=== PATIENT | female | born 1940 | race Caucasian/White ===

== ENCOUNTER → 2018-09-25 | Outpatient (CLI) | payer MEDICARE ==
[~2018-09-25] MED LIST: TIOT18 IH
== END | disposition home or self-care (01) ==
LOC: PLD 07:42 → LAB SHORT 07:42
DX: C44.722 Squamous cell carcinoma of skin of right lower limb, including hip (principal)
CPT/HCPCS: 88305

== ENCOUNTER → 2019-05-15 | Outpatient (CLI) | payer MEDICARE | END | disposition home or self-care (01) | LOC: LAB SHORT 08:58 → PLD 08:58 | DX: L82.1 Other seborrheic keratosis (principal) | CPT/HCPCS: 88305 ==

== ENCOUNTER → 2020-07-17 | Outpatient (CLI) | payer MEDICARE ==
[~2020-07-17] MED LIST changes: +ESTRADIOL42.5 GM; +LOW DOSE ASPIRI81 M1 PO; +PLAVIX75 MG PO; +TRELEGY ELLIPT1 EAC1 INH
[2020-07-18 14:11] LABS: Stool Occult Bld Immuno 1 Negative (NEGATIVE)
== END | disposition home or self-care (01) ==
LOC: LAB 10:00 → LAB SHORT 10:00
PROVIDERS: Family Medicine
DX: Z12.11 Encounter for screening for malignant neoplasm of colon (principal)
CPT/HCPCS: G0328

== ENCOUNTER 2020-11-21 16:31 | Emergency (ER) | payer MEDICARE ==
[~2020-11-21] VITALS: Ht 165.1 cm; Wt 59.0 kg
[~2020-11-21 16:31] MED LIST changes: -ESTRADIOL42.5 GM; -LOW DOSE ASPIRI81 M1 PO; -PLAVIX75 MG PO; -TRELEGY ELLIPT1 EAC1 INH
[2020-11-21] MEDS ORDERED: LOW DOSE ASPIRI81 M1 PO (16:52)
[2020-11-21] MEDS ORDERED: TRELEGY ELLIPT1 EAC1 INH (16:56)
[2020-11-21 16:58] LABS: BASOPHILS ABSOLUTE AUTO 0.05 K/mm3 (0.00-0.23); BASOPHILS PERCENT AUTO 1 % (0-2); EOSINOPHILS ABSOLUTE AUTO 0.21 K/mm3 (0.00-0.68); EOSINOPHILS PERCENT AUTO 4 % (0-6); Hematocrit 40.1 % (33.0-51.0); IMMATURE GRAN ABSOLUTE AUTO 0.02 K/mm3 (0.00-0.10); IMMATURE GRAN PERCENT AUTO 0 % (0-1); LYMPHOCYTES ABSOLUTE AUTO 1.38 K/mm3 (0.84-5.20); LYMPHOCYTES PERCENT AUTO 26 % (21-46); MONOCYTES ABSOLUTE AUTO 0.49 K/mm3 (0.16-1.47); MONOCYTES PERCENT AUTO 9 % (4-13); Mean Corpuscular HGB 28.6 pg (26.0-34.0); Mean Corpuscular HGB Conc 32.4 g/dL (31.5-36.5); Mean Corpuscular Volume 88 fL (80-100); NEUTROPHILS ABSOLUTE AUTO 3.11 K/mm3 (1.96-9.15); NEUTROPHILS PERCENT AUTO 59 % (41-73); Platelet Count 182 K/mm3 (150-400); RDW Coefficient Variation 12.1 % (11.7-14.2); RDW Standard Deviation 39.1 fL (35.1-46.3); Red Blood Cell Count 4.55 M/mm3 (3.80-5.20); White Blood Cell Count 5.26 K/mm3 (4.00-11.30)
[2020-11-21 17:47] LABS: Alanine Aminotransfer (ALT/SGP 37 U/L (12-78); Albumin, Blood 3.7 g/dL (3.4-5.0); Albumin/Globulin Ratio 1.3 (0.8-1.8); Alk Phos 89 U/L (50-136); Anion Gap 2 mmol/L (6-16); Aspartate Aminotrans (AST/SGOT 58 U/L (12-37); Bilirubin, Total 0.8 mg/dL (0.1-1.0); Blood Urea Nitrogen 11 mg/dL (8-24); Bun/Creatinine Ratio 14.6 (12.0-20.0); CO2, Blood 28 mmol/L (21-32); Calcium, Blood 8.6 mg/dL (8.5-10.1); Chloride, Blood 110 mmol/L (98-108); Creatinine, Blood 0.76 mg/dL (0.40-1.00); Globulin, Blood 2.9 g/dL (2.2-4.0); Glomerular Filtration Rate >60 (60-); Glucose, Blood 120 mg/dL (70-99); Potassium, Blood 3.9 mmol/L (3.5-5.5); Sodium, Blood 140 mmol/L (136-145); Total Protein, Blood 6.6 g/dL (6.4-8.2); Troponin I <0.015 ng/mL (0.000-0.040)
== END 2020-11-21 18:45 | disposition home or self-care (01) ==
LOC: ER 16:31
PROVIDERS: Emergency Medicine
DX: I47.1 Supraventricular tachycardia (principal); J43.9 Emphysema, unspecified; Z87.891 Personal history of nicotine dependence; Z79.82 Long term (current) use of aspirin; Z79.899 Other long term (current) drug therapy
CPT/HCPCS: 36415; 71046; 80053; 84443; 84484; 85025; 93005; 93010; 99285-25; J7030

== ENCOUNTER 2021-01-06 07:08 | Inpatient (IN) | payer MEDICARE ==
[~2021-01-06] VITALS: Ht 165.1 cm; Wt 63.5 kg
[~2021-01-06 07:08] MED LIST changes: +LOW DOSE ASPIRI81 M1 PO; +TRELEGY ELLIPT1 EAC1 INH
[2021-01-06] MEDS ORDERED: ESTRADIOL42.5 GM (07:29)
[2021-01-06] MEDS ORDERED: PLAVIX75 MG PO (07:29)
[2021-01-06 08:05] LABS: BASOPHILS ABSOLUTE AUTO 0.01 K/mm3 (0.00-0.23); BASOPHILS PERCENT AUTO 0 % (0-2); EOSINOPHILS ABSOLUTE AUTO 0.34 K/mm3 (0.00-0.68); EOSINOPHILS PERCENT AUTO 3 % (0-6); Hematocrit 44.7 % (33.0-51.0); Hemoglobin 14.6 g/dL (11.5-16.0); IMMATURE GRAN ABSOLUTE AUTO 0.04 K/mm3 (0.00-0.10); IMMATURE GRAN PERCENT AUTO 0 % (0-1); LYMPHOCYTES ABSOLUTE AUTO 0.47 K/mm3 (0.84-5.20); LYMPHOCYTES PERCENT AUTO 5 % (21-46); MONOCYTES ABSOLUTE AUTO 0.25 K/mm3 (0.16-1.47); MONOCYTES PERCENT AUTO 3 % (4-13); Mean Corpuscular HGB 28.9 pg (26.0-34.0); Mean Corpuscular HGB Conc 32.7 g/dL (31.5-36.5); Mean Corpuscular Volume 89 fL (80-100); Mean Platelet Volume 10.3 fL (9.1-12.4); NEUTROPHILS ABSOLUTE AUTO 8.85 K/mm3 (1.96-9.15); NEUTROPHILS PERCENT AUTO 89 % (41-73); Platelet Count 206 K/mm3 (150-400); RDW Coefficient Variation 12.3 % (11.7-14.2); RDW Standard Deviation 39.7 fL (35.1-46.3); Red Blood Cell Count 5.05 M/mm3 (3.80-5.20); White Blood Cell Count 9.96 K/mm3 (4.00-11.30)
[2021-01-06 08:16] LABS: Alanine Aminotransfer (ALT/SGP 20 U/L (12-78); Albumin, Blood 3.7 g/dL (3.4-5.0); Albumin/Globulin Ratio 1.1 (0.8-1.8); Alk Phos 75 U/L (50-136); Anion Gap 5 mmol/L (6-16); Aspartate Aminotrans (AST/SGOT 19 U/L (12-37); Bilirubin, Total 0.8 mg/dL (0.1-1.0); Blood Urea Nitrogen 12 mg/dL (8-24); Bun/Creatinine Ratio 16.4 (12.0-20.0); CO2, Blood 30 mmol/L (21-32); Calcium, Blood 9.2 mg/dL (8.5-10.1); Chloride, Blood 105 mmol/L (98-108); Creatinine, Blood 0.73 mg/dL (0.40-1.00); Globulin, Blood 3.4 g/dL (2.2-4.0); Glomerular Filtration Rate >60 (60-); Glucose, Blood 144 mg/dL (70-99); Potassium, Blood 4.1 mmol/L (3.5-5.5); Sodium, Blood 140 mmol/L (136-145); Total Protein, Blood 7.1 g/dL (6.4-8.2)
[2021-01-06 08:26] LABS: BAND PERCENT MAN 6 % (0-8); BASOPHILS PERCENT MAN 0 % (0-2); EOSINOPHILS ABSOLUTE MAN 0.29 K/mm3 (0.00-0.68); EOSINOPHILS PERCENT MAN 3 % (0-6); LYMPHOCYTES ABSOLUTE MAN 0.49 K/mm3 (0.84-5.20); LYMPHOCYTES PERCENT MAN 5 % (21-46); MONOCYTES ABSOLUTE MAN 0.19 K/mm3 (0.16-1.47); MONOCYTES PERCENT MAN 2 % (4-13); NEUTROPHILS ABSOLUTE MAN 8.96 K/mm3 (1.96-9.15); SEG NEUTROPHILS PERCENT MAN 84 % (41-73); TOTAL CELLS COUNTED 100
[2021-01-06 08:35] LABS: Source, Urine Clean Catch
[2021-01-06 08:39] LABS: Appearance, Urine Clear (Clear); Bilirubin, Urine Neg (Neg); Blood, Urine Neg (Neg); Color, Urine Yellow (P-Yellow); Glucose Qualitative, Urine Neg (Neg); Ketones, Urine 2+ (Neg); Leukocyte Esterase, Urine Neg (Neg); Nitrite, Urine Neg (Neg); Protein, Urine 1+ (Neg); Specific Gravity, Urine 1.015 (1.003-1.022); Urobilinogen, Urine NORM (Normal)
--- NOTE | 2021-01-06 14:45 | NUR ---
PT ARRIVED TO UNIT FROM ED TRANSFERRED FROM TO BED. ORIENTED TO ROOM. COMPLETED ADMIT. PT DENIES PAIN AT THIS TIME, STATES ABD TENDER TO PALPATION. ABD DISTENDED AND SLIGHTLY FIRM. SOME BT PRESENT. DENIES NAUSEA CURRENTLY. CALL LIGHT IN REACH. TRANSITIONED FROM 02 TO WALL 02 AT 2L NC. PT CURRENTLY BEING PICKED UP FOR IMAGING.
--- NOTE | 2021-01-06 15:01 | NUR ---
pt back from imaging
--- NOTE | 2021-01-06 15:38 | NUR ---
ROUNDED ON PT
--- NOTE | 2021-01-06 17:05 | NUR ---
PT RESTING IN BED. HAD SMALL HARD BM AND PASSED SM AMT FLATUS. STATED AT PRESENT MOMENT "NOT IN MISERY". STATES PAIN WILL INCREASE AND THEN PT DOES NOT KNOW IF GOING TO VOMIT OR HAVE BM. DECLINED PAIN MEDS AND ANTIEMETICS AT THIS TIME. CALL LIGHT IN REACH. IV FLUIDS INFUSING PER ORDERS.
--- NOTE | 2021-01-06 18:06 | NUR ---
SUMMARY PT SLEPT FOR ABOUT AN HOUR AND THEN WOKE AND HAD 900 ML EMESIS. MEDICATED PER ORDERS FOR NAUSEA AND PLACED COOL CLOTH TO FOREHEAD. PT DENIES ANY OTHER NEEDS AT THIS TIME. DECLINING PAIN MEDS AT THIS TIME. RESTING IN BED, CALL LIGHT IN REACH. PLAN FOR IMAGING AT 1900. FLUIDS RUNNING PER ORDERS.
--- NOTE | 2021-01-06 19:02 | NUR ---
pt to imaging
[2021-01-07 04:44] LABS: Hematocrit 43.6 % (33.0-51.0); Mean Corpuscular HGB 28.3 pg (26.0-34.0); Mean Corpuscular HGB Conc 32.1 g/dL (31.5-36.5); Mean Corpuscular Volume 88 fL (80-100); Platelet Count 221 K/mm3 (150-400); RDW Coefficient Variation 12.4 % (11.7-14.2); Red Blood Cell Count 4.94 M/mm3 (3.80-5.20); White Blood Cell Count 9.17 K/mm3 (4.00-11.30)
[2021-01-07 05:03] LABS: Alanine Aminotransfer (ALT/SGP 17 U/L (12-78); Albumin, Blood 3.4 g/dL (3.4-5.0); Albumin/Globulin Ratio 1.1 (0.8-1.8); Alk Phos 60 U/L (50-136); Anion Gap 4 mmol/L (6-16); Aspartate Aminotrans (AST/SGOT 13 U/L (12-37); Bilirubin, Total 0.6 mg/dL (0.1-1.0); Blood Urea Nitrogen 15 mg/dL (8-24); Bun/Creatinine Ratio 20.1 (12.0-20.0); CO2, Blood 32 mmol/L (21-32); Chloride, Blood 109 mmol/L (98-108); Creatinine, Blood 0.75 mg/dL (0.40-1.00); Globulin, Blood 3.2 g/dL (2.2-4.0); Glomerular Filtration Rate >60 (60-); Glucose, Blood 122 mg/dL (70-99); Magnesium, Blood 2.4 mg/dL (1.6-2.4); Potassium, Blood 3.7 mmol/L (3.5-5.5); Sodium, Blood 145 mmol/L (136-145); Total Protein, Blood 6.6 g/dL (6.4-8.2)
--- NOTE | 2021-01-07 07:30 | NUR ---
SUMMARY PT COMPLETED RADIOLOGY THIS AM AND IS HOPEFUL OF POSITIVE RESULTS. MED WITH ZOFRAN FOR NAUSEA LAST NIGHT.
--- NOTE | 2021-01-07 16:39 | NUR ---
PT REPORTS FEELS MUCH BETTER SHOWERED AND IS HAVING MULTIPLE BMS. NO N/V. TOLERATING ICE CHIPS. DR FELIPE IN TO SEE PT, PLAN TO DC HOME.
--- NOTE | 2021-01-07 17:15 | NUR ---
discharged PT TOLERATED WATER AND ICE CHIPS. EXPRESSED DESIRE AND COMFORT IN GOING HOME. DENIED N/V AND PAIN. HAVING BMS. STATED FELT "MUCH BETTER." REVIEWED DC INSTRUCTIONS; PT VERBALIZED UNDERSTANDING. DC'D IV, CATHETER INTACT. PT LEFT UNIT IN WC, ACCOMPANIED BY FAMILY MEMBER TO RIDE WAITING OUTSIDE.
== END 2021-01-07 17:15 | disposition home or self-care (01) | DRG 390 ==
LOC: ER 07:08 → ERHOLD 10:12 → SURS 10:12
PROVIDERS: Emergency Medicine; Nurse Practitioner Acute Care; ADMIT Internal Medicine
DX: K56.600 Partial intestinal obstruction, unspecified as to cause (principal); J43.9 Emphysema, unspecified; I73.9 Peripheral vascular disease, unspecified; F10.20 Alcohol dependence, uncomplicated; Z99.81 Dependence on supplemental oxygen; Z87.891 Personal history of nicotine dependence; Z95.828 Presence of other vascular implants and grafts; Z90.89 Acquired absence of other organs; Z98.890 Other specified postprocedural states; Z79.82 Long term (current) use of aspirin; Z79.899 Other long term (current) drug therapy
CPT/HCPCS: 36415; 74177; 74250; 80053; 83690; 83735; 85025; 85027; 94640; 94664; 94760; 96374-59; 96375; 96376; 99285-25; A9270; J0780; J2405; J3010; J7030; Q9967

== ENCOUNTER 2022-02-20 10:02 | Observation (INO) | payer MEDICARE ==
[~2022-02-20] VITALS: Ht 165.1 cm; Wt 60.0 kg
[~2022-02-20 10:02] MED LIST changes: +ESTRADIOL42.5 GM; +PLAVIX75 MG PO
[2022-02-20 10:40] LABS: BASOPHILS ABSOLUTE AUTO 0.08 K/mm3 (0.00-0.23); BASOPHILS PERCENT AUTO 2 % (0-2); EOSINOPHILS ABSOLUTE AUTO 0.62 K/mm3 (0.00-0.68); EOSINOPHILS PERCENT AUTO 13 % (0-6); Hematocrit 41.6 % (33.0-51.0); Hemoglobin 13.4 g/dL (11.5-16.0); IMMATURE GRAN PERCENT AUTO 0 % (0-1); LYMPHOCYTES ABSOLUTE AUTO 0.95 K/mm3 (0.84-5.20); LYMPHOCYTES PERCENT AUTO 20 % (21-46); MONOCYTES ABSOLUTE AUTO 0.41 K/mm3 (0.16-1.47); MONOCYTES PERCENT AUTO 9 % (4-13); Mean Corpuscular HGB 28.2 pg (26.0-34.0); Mean Corpuscular HGB Conc 32.2 g/dL (31.5-36.5); Mean Corpuscular Volume 87 fL (80-100); Mean Platelet Volume 9.6 fL (9.1-12.4); NEUTROPHILS ABSOLUTE AUTO 2.65 K/mm3 (1.96-9.15); NEUTROPHILS PERCENT AUTO 56 % (41-73); Platelet Count 263 K/mm3 (150-400); RDW Coefficient Variation 11.8 % (11.7-14.2); Red Blood Cell Count 4.76 M/mm3 (3.80-5.20); White Blood Cell Count 4.71 K/mm3 (4.00-11.30)
[2022-02-20 10:52] LABS: Albumin, Blood 3.3 g/dL (3.4-5.0); Albumin/Globulin Ratio 0.9 (0.8-1.8); Bilirubin, Total 0.5 mg/dL (0.1-1.0); Bun/Creatinine Ratio 16.4 (12.0-20.0); Calcium, Blood 8.9 mg/dL (8.5-10.1); Creatinine, Blood 0.67 mg/dL (0.40-1.00); Globulin, Blood 3.6 g/dL (2.2-4.0); Potassium, Blood 3.9 mmol/L (3.5-5.5); Total Protein, Blood 6.9 g/dL (6.4-8.2)
--- NOTE | 2022-02-20 18:49 | NUR ---
SHIFT SUMMARY PT ARRIVED TO [facility] AT APPROXIMATELY 1400. A&Ox4, VSS, SpO2> 92% ON BASELINE 2L VIA NC. HR SR-ST 90-110'S WITH PVC's. PT HAD ONE MOMENT OF HAVING HEART PALPITATIONS, HR WAS ST AT 100'S WITH NO PVC's DURING THIS, PT REPORTED IT LASTING LESS THAN A MINUTE. SINCE THEN, PT HAS DENIED ANY OTHER EPISODES. PT ABLE TO CALL AND COMMUNICATE NEEDS APPROPRIATELY. AMBULATES TO BATHROOM WITH SBA, CONTINENT OF BOTH BOWEL AND URINE. ECHO PLANNED FOR 814 8 AM, WILL CONTACT [facility] IN AM TO OBTAIN ZIO PATCH RECORDS. WILL CONTINUE TO MONITOR ANAD PROVIDE CARE UNTIL REPORT TO NOC.
[2022-02-21 03:33] LABS: Albumin, Blood 2.9 g/dL (3.4-5.0); Anion Gap 3 mmol/L (6-16); Blood Urea Nitrogen 7 mg/dL (8-24); Bun/Creatinine Ratio 11.3 (12.0-20.0); CO2, Blood 31 mmol/L (21-32); Calcium, Blood 8.6 mg/dL (8.5-10.1); Chloride, Blood 110 mmol/L (98-108); Creatinine, Blood 0.62 mg/dL (0.40-1.00); Glomerular Filtration Rate 89 (60-); Glucose, Blood 101 mg/dL (70-99); Phosphorus, Blood 3.5 mg/dL (2.5-4.9); Potassium, Blood 3.8 mmol/L (3.5-5.5); Sodium, Blood 144 mmol/L (136-145)
--- NOTE | 2022-02-21 06:22 | NUR ---
SHIFT SUMMRY PT IS ALERT AND ORIENTED. THERE HAVE BEEN NO ACUTE CHANGES. PT DENIES CHEST PAIN/PRESSURE OR SOB. PT DENIES FEELING DIZZY OR PALPATATIONS. VITALS HAVE REMAINED STABLE AND SHE IS ON 2L NC WITH SATS ABOVE 92%. SHE HAS BEEN ABLE TO AMBULATE TO THE BATHROOM SBA. CALL LIGHT IS WITHIN REACH.
--- NOTE | 2022-02-21 18:12 | NUR ---
SHIFT SUMMARY A&Ox4, VSS, SpO2> 92% ON BASELINE 2L VIA NC. PT's HR HAS RANGED FROM SB IN THE 50's TO ST IN THE 100's WITH PVC'S. PT DENIED HAVING ANY OF EPISODES OF HEART PALPITATIONS OR BECOMING DIZZY THIS SHIFT. PT IS ABLE TO CALL AND COMMUNICATE NEEDS APPROPIRATELY. CONTINENT OF BOWEL AND URINE, AMBULATES TO BATHROOM WITH MINIMAL SBA. RECIEVED ZIO PATCH RESULTS THIS AFTERNOON, WATIING FOR CNC FIELD SERVICE ENGINEER TO REVIEW THEM. WILL CONTINUE TO MONITOR AND PROVIDE CARE UNTIL REPORT TO NOC.
--- NOTE | 2022-02-22 06:35 | NUR ---
SHIFT SUMMARY PT IS ALERT AND ORIENTED X4. PT'S VITALS ARE STABLE AND IS ON 2L NC (BASELINE) WITH SATS ABOVE 92%. PT HAD A RUN OF SVT AT APPROX 2200. PT DENIES FEELING CHEST PAIN/PRESSURE OR SOB. SHE REPORTED FEELING THE PALPATATIONS ONLY. SHE HAS BEEN GETTING UP TO THE BATHROOM WNL. SHE STATES THAT SHE IS VERY EAGER TO GET HOME. CALL LIGHT IS WITHIN REACH.
[2022-02-22] MEDS ORDERED: ACET325 PO (09:56)
[2022-02-22] MEDS ORDERED: ALBU8HFA2 INH (09:59)
[2022-02-22] MEDS ORDERED: SENN187 PO (10:00)
[2022-02-22] MEDS ORDERED: DOCU100 PO (10:00)
--- NOTE | 2022-02-22 14:01 | NUR ---
DISCHARGE NOTE PT A&Ox4, VSS, SpO2> 92% ON BASELINE 2L VIA NC. NSR WITH PVC's IN THE 70'S. PT DENIES CP OR FEELING LIGHTHEADED. DISCHARGE INSTRUCTIONS PROVIDED, IV REMOVED. PT TAKEN OUT VIA WHEELCHAIR BY STAFF AT APPROXIMATELY 1340 WITH BELONGINGS AND PERSONAL 02 TANK.
== END 2022-02-22 13:40 | disposition home or self-care (01) ==
LOC: ER 10:02 → PCU 10:03
PROVIDERS: Physician Assistant; ADMIT Internal Medicine
DX: R55 Syncope and collapse (principal); R00.2 Palpitations; R06.00 Dyspnea, unspecified; I73.9 Peripheral vascular disease, unspecified; J43.9 Emphysema, unspecified; Z86.79 Personal history of other diseases of the circulatory system; Z99.81 Dependence on supplemental oxygen; Z87.891 Personal history of nicotine dependence; Z79.82 Long term (current) use of aspirin
CPT/HCPCS: 36415; 71045; 80053; 80069; 83880; 84439; 84443; 84481; 84484; 85025; 93005; 93010; 93306; 94640; 94760; 96372; 99285-25; A9270; G0378; J1650; J7030

== ENCOUNTER 2022-11-04 12:43 | Inpatient (IN) | payer MEDICARE ==
[~2022-11-04] VITALS: Ht 165.1 cm; Wt 59.4 kg
[~2022-11-04 12:43] MED LIST changes: +ACET325 PO; +ALBU8HFA2 INH; +DOCU100 PO; +SENN187 PO
[2022-11-04 13:29] LABS: BASOPHILS ABSOLUTE AUTO 0.06 K/mm3 (0.00-0.23); BASOPHILS PERCENT AUTO 1 % (0-2); EOSINOPHILS ABSOLUTE AUTO 0.24 K/mm3 (0.00-0.68); EOSINOPHILS PERCENT AUTO 4 % (0-6); Hematocrit 41.4 % (33.0-51.0); Hemoglobin 13.3 g/dL (11.5-16.0); IMMATURE GRAN ABSOLUTE AUTO 0.01 K/mm3 (0.00-0.10); IMMATURE GRAN PERCENT AUTO 0 % (0-1); LYMPHOCYTES ABSOLUTE AUTO 0.83 K/mm3 (0.84-5.20); LYMPHOCYTES PERCENT AUTO 15 % (21-46); MONOCYTES PERCENT AUTO 4 % (4-13); Mean Corpuscular HGB 28.1 pg (26.0-34.0); Mean Corpuscular HGB Conc 32.1 g/dL (31.5-36.5); Mean Corpuscular Volume 87 fL (80-100); Mean Platelet Volume 10.3 fL (9.1-12.4); NEUTROPHILS ABSOLUTE AUTO 4.36 K/mm3 (1.96-9.15); NEUTROPHILS PERCENT AUTO 76 % (41-73); Platelet Count 194 K/mm3 (150-400); RDW Coefficient Variation 12.8 % (11.7-14.2); RDW Standard Deviation 40.6 fL (35.1-46.3); Red Blood Cell Count 4.74 M/mm3 (3.80-5.20)
[2022-11-04 13:48] LABS: Magnesium, Blood 2.1 mg/dL (1.6-2.4); Thyroid Stimulating Hormone 3.85 uIU/mL (0.360-4.800)
[2022-11-04 13:49] LABS: Albumin, Blood 3.6 g/dL (3.4-5.0); Albumin/Globulin Ratio 1.3 (0.8-1.8); Bilirubin, Total 0.9 mg/dL (0.1-1.0); Bun/Creatinine Ratio 13.6 (12.0-20.0); Calcium, Blood 9.1 mg/dL (8.5-10.1); Creatinine, Blood 0.89 mg/dL (0.40-1.00); Globulin, Blood 2.7 g/dL (2.2-4.0); Total Protein, Blood 6.3 g/dL (6.4-8.2)
[2022-11-04 19:19] VITALS: BP 96/49
--- NOTE | 2022-11-04 19:19 | NUR ---
PT ARRIVAL... PT CAME TO THE UNIT AT 1850. SHE WAS ABLE TO SELF TRANSFER FROM THE GURNEY TO THE BED. PT WAS IN AFIB IN THE 90'S, CARDIZEM GTT RUNNING AT 15MG/HR, THIS WAS DECREASED DOWN TO 10MG/HR D/T SOFT BPs. PT'S SBPs WERE IN THE 90'S BUT MAPS WERE >65. PT DENIES ANY CHEST PAIN/PRESSURE AT THIS TIME. REPORT GIVEN TO ONCOMING RN.
[2022-11-04] MEDS ORDERED: MELATONIN5 M1 PO (20:03)
[2022-11-04] MEDS ORDERED: ASPI81CH PO (20:03)
[2022-11-04 22:47] VITALS: BP 66/58
[2022-11-04 23:00] VITALS: BP 71/60
[2022-11-04 23:15] VITALS: BP 66/45
[2022-11-04 23:22] VITALS: BP 61/51
[2022-11-04 23:30] VITALS: BP 82/63
[2022-11-05] VITALS (18 sets, daily range): BP systolic 72–125; BP diastolic 51–87
--- NOTE | 2022-11-05 02:46 | NUR ---
Assumed care of pt at 1900. Patient is a new ER admit for Afib RVR and was on Cardizem gtt. Patients HR was observed to be Afib in the 60-70's and the Cardizem was turned off. Patients BP was also low with MAP below 65. Order obtained for 250ml bolus, and another 250ml bolus if that one didn't bring pressure up. After the 500ml patients MAP still below 65. Another order for 250ml bolus and to start NS maintenance fluids at 75ml/hr. Patients MAPis now in high 60's-low 70's. Patient only ever symptomatic of low BP with activity.
[2022-11-05 05:12] LABS: BASOPHILS ABSOLUTE AUTO 0.06 K/mm3 (0.00-0.23); BASOPHILS PERCENT AUTO 1 % (0-2); EOSINOPHILS PERCENT AUTO 5 % (0-6); Hematocrit 37.8 % (33.0-51.0); Hemoglobin 12.1 g/dL (11.5-16.0); IMMATURE GRAN ABSOLUTE AUTO 0.01 K/mm3 (0.00-0.10); IMMATURE GRAN PERCENT AUTO 0 % (0-1); LYMPHOCYTES ABSOLUTE AUTO 0.93 K/mm3 (0.84-5.20); LYMPHOCYTES PERCENT AUTO 21 % (21-46); MONOCYTES ABSOLUTE AUTO 0.52 K/mm3 (0.16-1.47); MONOCYTES PERCENT AUTO 12 % (4-13); Mean Corpuscular HGB 28.2 pg (26.0-34.0); Mean Corpuscular Volume 88 fL (80-100); Mean Platelet Volume 10.6 fL (9.1-12.4); NEUTROPHILS PERCENT AUTO 61 % (41-73); Platelet Count 178 K/mm3 (150-400); RDW Coefficient Variation 13.1 % (11.7-14.2); RDW Standard Deviation 42.4 fL (35.1-46.3); Red Blood Cell Count 4.29 M/mm3 (3.80-5.20); White Blood Cell Count 4.42 K/mm3 (4.00-11.30)
--- NOTE | 2022-11-05 05:47 | NUR ---
Patient remained in SR-SB as low as 33, sleeping at the time of sabra episodes. NS continues to run at 75ml/hr and MAP in 70-80s. Maintains over 95% on RA. Will report to dayshift SEN.
[2022-11-05 05:56] LABS: Albumin, Blood 2.9 g/dL (3.4-5.0); Albumin/Globulin Ratio 1.2 (0.8-1.8); Bilirubin, Total 0.8 mg/dL (0.1-1.0); Bun/Creatinine Ratio 21.9 (12.0-20.0); Calcium, Blood 8.5 mg/dL (8.5-10.1); Creatinine, Blood 0.64 mg/dL (0.40-1.00); Globulin, Blood 2.4 g/dL (2.2-4.0); Magnesium, Blood 2.2 mg/dL (1.6-2.4); Potassium, Blood 3.8 mmol/L (3.5-5.5); Total Protein, Blood 5.3 g/dL (6.4-8.2)
--- NOTE | 2022-11-05 13:00 | NUR ---
NOON ASSESSMENT PT ASSESSED. NO CHANGE NOTED FROM AM ASSESSMENT. PT IS ANXIOUS TO LEAVE. SHE STATED SHE IS HOPING THE TECHNICAL SALES SUPPORT SPECIALIST WITH DISCHARGE HER HOME TODAY.
--- NOTE | 2022-11-05 16:30 | NUR ---
EVENING ASSESSMENT NO CHANGES TO REPORT SINCE AM ASSESSMENT. PT CONTINUES TO GET OOB WITH SBA. SHE IS WAITING FOR DR. EATON TO ROUND FROM CARDIOLOGY. SHE STATES SHE WISHES TO GO HOME TODAY. VSS.
--- NOTE | 2022-11-05 18:00 | NUR ---
SHIFT SUMMARY PT HAS HAD SOFT BP'S THAT HAVE IMPROVED T/O THE DAY. PT DENIES SYMPTOMS OF LOW BLOOD PRESSURE. PLAN FOR PT TO DISCHARGE HOME WHEN HER FAMILY ARRIVES TO TAKE HER HOME. PT STARTED ON ELIQUIS PRIOR TO DISCHARGE. WILL REPORT TO ASHLEY CHATTERJEE.
[2022-11-05] MEDS ORDERED: ELIQUIS2.5 MG PO (18:17)
[2022-11-05] MEDS ORDERED: DILT60 PO (18:19)
== END 2022-11-05 19:47 | disposition home or self-care (01) | DRG 309 ==
LOC: ER 12:43 → PCU 12:44
PROVIDERS: Emergency Medicine; ADMIT Student in an Organized Health Care Education/Training Program
DX: I48.0 Paroxysmal atrial fibrillation (principal); I24.8 Other forms of acute ischemic heart disease; J43.9 Emphysema, unspecified; I65.29 Occlusion and stenosis of unspecified carotid artery; I08.1 Rheumatic disorders of both mitral and tricuspid valves; I50.9 Heart failure, unspecified; E78.5 Hyperlipidemia, unspecified; I25.10 Atherosclerotic heart disease of native coronary artery without angina pectoris; E88.09 Other disorders of plasma-protein metabolism, not elsewhere classified; I11.0 Hypertensive heart disease with heart failure; I73.9 Peripheral vascular disease, unspecified; I27.20 Pulmonary hypertension, unspecified; Z79.899 Other long term (current) drug therapy; Z79.52 Long term (current) use of systemic steroids; Z79.82 Long term (current) use of aspirin; Z79.51 Long term (current) use of inhaled steroids; Z99.81 Dependence on supplemental oxygen; Z98.890 Other specified postprocedural states; Z86.79 Personal history of other diseases of the circulatory system; Z87.891 Personal history of nicotine dependence; Z95.820 Peripheral vascular angioplasty status with implants and grafts; Z86.73 Personal history of transient ischemic attack (TIA), and cerebral infarction without residual deficits
CPT/HCPCS: 36415; 71045; 80053; 83735; 84443; 84484; 85025; 93005; 93010; 93306; 96361; 96365; 96366; 96376; 99285-25; A9270; G0378; J7030; J7040; J7050

== ENCOUNTER 2024-04-06 10:37 | Inpatient (IN) | payer MEDICARE ==
[~2024-04-06] VITALS: Ht 165.1 cm; Wt 60.9 kg
[2024-04-06] VITALS (10 sets, daily range): BP systolic 92–140; BP diastolic 67–101
[~2024-04-06 10:37] MED LIST changes: +ASPI81CH PO; +DILT60 PO; +ELIQUIS2.5 MG PO; +MELATONIN5 M1 PO
[2024-04-06 11:06] LABS: BASOPHILS ABSOLUTE AUTO 0.08 K/mm3 (0.00-0.23); BASOPHILS PERCENT AUTO 1 % (0-2); EOSINOPHILS ABSOLUTE AUTO 0.23 K/mm3 (0.00-0.68); EOSINOPHILS PERCENT AUTO 4 % (0-6); Hematocrit 42.6 % (33.0-51.0); Hemoglobin 13.5 g/dL (11.5-16.0); IMMATURE GRAN ABSOLUTE AUTO 0.02 K/mm3 (0.00-0.10); IMMATURE GRAN PERCENT AUTO 0 % (0-1); LYMPHOCYTES ABSOLUTE AUTO 0.82 K/mm3 (0.84-5.20); LYMPHOCYTES PERCENT AUTO 13 % (21-46); MONOCYTES ABSOLUTE AUTO 0.39 K/mm3 (0.16-1.47); MONOCYTES PERCENT AUTO 6 % (4-13); Mean Corpuscular HGB 27.7 pg (26.0-34.0); Mean Corpuscular HGB Conc 31.7 g/dL (31.5-36.5); Mean Corpuscular Volume 88 fL (80-100); Mean Platelet Volume 9.5 fL (9.1-12.4); NEUTROPHILS PERCENT AUTO 76 % (41-73); Platelet Count 307 K/mm3 (150-400); RDW Standard Deviation 41.3 fL (35.1-46.3); Red Blood Cell Count 4.87 M/mm3 (3.80-5.20); White Blood Cell Count 6.34 K/mm3 (4.00-11.30)
[2024-04-06] MEDS ORDERED: Diltiazem HCl 5 MG / ML 5ML Vial IV ONE (11:15)
[2024-04-06 11:26] LABS: Albumin, Blood 3.2 g/dL (3.4-5.0); Bilirubin, Total 0.9 mg/dL (0.1-1.0); Bun/Creatinine Ratio 13.9 (12.0-20.0); Calcium, Blood 8.9 mg/dL (8.5-10.1); Creatinine, Blood 0.72 mg/dL (0.40-1.00); Globulin, Blood 3.3 g/dL (2.2-4.0); Potassium, Blood 4.2 mmol/L (3.5-5.5); Total Protein, Blood 6.5 g/dL (6.4-8.2)
[2024-04-06] MEDS ORDERED: FLU VACC TS2024-25(6MOS UP)/PF 45 MCG/0.5 ML SYRINGE IM SCH (12:15)
[2024-04-06] MEDS ORDERED: Mometasone/Formoterol MDI 100/5 mcg 13 GM INH SCH (13:45)
[2024-04-06] MEDS ORDERED: Ipratropium Bromide INH 0.02% 0.5 mg/2.5ML Vial INH SCH ×2 (13:45→18:16)
--- NOTE | 2024-04-06 14:41 | NUR ---
PT ADMITTED TO PCU 3 AT JUST AFTER 1300, DAUGHTER WITH HER. SHE IS ALERT AND ORIENTED, FULLY COOPERATIVE. INTO THE BATHROOM PRIOR TO GETTING INTO BED. SHE IS CHANGED INTO A GOWN, HER DAUGHTER GETS HER SOME SOUP. SHE IS TAKEN OFF THE DIGOXIN GTT AND AMIODARONE DRIP IS STARTED. HEART RATE IS COMING DOWN TO LOW 100S. BP IS STABLE. DAUGHTER HAS NOW GONE HOME FOR A BREAK AND PT IS RESTING QUIETLY, CALL LIGHT IN REACH. PT DID STATE THAT SHE WOULD LIKE TO BE A NO CPR WELL NO INTUBATION. SHE STATED THAT SHE ONLY DISCUSSED THE NO INTUBATION WITH . WILL RELAY MESSAGE.
--- NOTE | 2024-04-06 19:18 | NUR ---
RALPH HAS REMAINED IN AFIB RATE OF LOW 100S. BLOOD PRESSURE HAS BEEN STABLE WITH MAP >65. AMIODARONE DRIP CONTINUES AT 1MG/MIN UNTIL AROUND 1945. SHE HAS BEEN ABLE TO TAKE IN SOME FLUIDS, SHE DRINKS SMALL SIPS AND SLOWLY SHE HAS SOME "DIFFICULTY WITH HER SWALLOW". SHE HAS BEEN UP TO THE BATHROOM X 2 WITH STANDBY ASSIST. RIGHT LEG WITH SOME SWELLING 1+ ALSO > LEFT. SHE IS ORIENTED AND APPRORIATE, SHE IS ABLE TO MAKE HER NEEDS KNOWN. SHE HAS SOME RED SCABS TO THE LEFT ANTERIOR CHEST THAT SHE ADMITS ARE FROM RECENT REMOVAL OF SPOTS FROM HER DOCTOR. THEY ARE C/D/I. IV IN LEFT A/C CONTINUES WITH GOOD INFUSION.
[2024-04-06] MEDS ORDERED: Apixaban 5 MG Tab PO SCH (21:00)
[2024-04-06] MEDS ORDERED: Melatonin 5 MG Tablet PO SCH (21:00)
[2024-04-07] VITALS (7 sets, daily range): BP systolic 109–134; BP diastolic 85–107
[2024-04-07] MEDS ORDERED: NS 1,000 ML IV SCH (03:40)
--- NOTE | 2024-04-07 04:46 | NUR ---
Shift Summary- Chelsey had a relatively good night. 6hr bag of Amiodarone completed at 1949. Next bag then started at 16.7ml/hr. Around 2345 she got ready to bed, ambulated to the restroom with minimal assistance- HR did elevate up to 140's- once back to bed it got settled back into the 120's after about 3-5 minutes without issue. Chelsey did not sleep at all, and around 0330 she again called to go to the restroom- this time she apparently was assisted to the restroom without her oxygen on and her HR did not settle down. HR was noted to be anywhere from 120's-150's, patient was having anxiety, and also swallowed some water, and incidently aspirated on it (she relates this to the cardizem medication she previously used to take causing her this new swallowing issue). MD came to bedside to evaluate for possible PRN anxiety medication/sleep aid. Ultimately no medication was ordered. MD ordered NS bag to infuse at 125ml/hr due to patients lack of oral intake with swallowing issue, and encouraged patient to again turn off the lights and get some sleep. 2nd IV needed to be established- causing patient increased anxiety and elevated HR. Patient up to bathroom again, but afterwards resting comfortably. HR has been running anywhere from 115's to 145's.
[2024-04-07] MEDS ORDERED: Metoprolol Tartrate 1 MG/ML 5 ML VIAL IV ONE ×2 (09:00→12:30)
[2024-04-07] MEDS ORDERED: Acetaminophen 325 MG TABLET PO PRN (12:45)
[2024-04-07] MEDS ORDERED: DEXTROSE 5% IV SCH (12:55)
[2024-04-07] MEDS ORDERED: DIGOXIN IV SCH (12:55)
[2024-04-07] MEDS ORDERED: Furosemide 40 MG Tab PO SCH (13:00)
[2024-04-07] MEDS ORDERED: Metoprolol Tartrate 1 MG/ML 5 ML VIAL IV PRN (15:00)
--- NOTE | 2024-04-07 17:20 | NUR ---
SHIFT SUMMARY NO ACUTE CHANGES THIS SHIFT. PT REMAINS A&0 X4, OBEYS COMMANDS, PT DOES REPORT FEELINGS OF FEAR, ANXIETY AND DEPRESSION AT THE START OF SHIFT, SAID SHE HAS STARTED TO FEEL A BIT BETTER BUT STILL REALLY FEARFUL. PT HR REMAINS ELEVATED 110'S- 120'S BUT HAS IMPROVED SINCE START OF SHIFT AT 140'S-150'S, PT DEINES CHEST P/P BUT DOES REPORT DIZZINESS. BIT OF EDEMA IN THE BLE. PT SOB WITH ACTIVITY BUT ABLE TO TRANFER WITH MINIMAL ASSIT TO THE BATHROOM. PT SHOWERED THIS SHIFT. FAMILY CAME TO BEDSIDE AND VISITED WITH PT. PT REPORTS DIFFICULTY SWALLOWING IT FEELS LIKE ITS CAUGHT IN HER THROAT, GAVE PT PILLS WITH APPLE SAUCE AND PT REPORTED THAT IT FELT EASIER, SPEECH THERAPY IS CONSULTED. ROUNDED IN THE AM AND UPDATED PLAN OF CARE FOR HEART RATE CONTROL. ALSO DISCCUSED HYDROXYZINE WITH PATIENT FOR ANXIETY. ALSO REQUESTED THE ECHO BE COMPLETED WHEN PTS RATE IS LESS THAN 110. @ APPROX 1220 DR. DANG WAS NOTIFED THAT PT' HR WAS TRENDING BACK UP AFTER LOPRESSOR PUSH. NEW ORDERS GIVEN. @ APPROX 1710 DR. DANG CALLED TO UPDATE PLAN OF CARE. BED LOWEST POSTION, CALL LIGHT IN REACH. WAITING TO GIVE REPORT TO DAYLIN CHATTERJEE
[2024-04-07] MEDS ORDERED: HyDROXyzine HCl 25 MG Tab PO PRN (17:50)
[2024-04-08] VITALS (7 sets, daily range): BP systolic 93–148; BP diastolic 74–98
[2024-04-08 04:33] LABS: Anion Gap 11 mmol/L (3-11); Blood Urea Nitrogen 11 mg/dL (8-24); Bun/Creatinine Ratio 16.7 (12.0-20.0); CO2, Blood 25 mmol/L (21-32); Calcium, Blood 8.3 mg/dL (8.5-10.1); Chloride, Blood 112 mmol/L (98-108); Creatinine, Blood 0.66 mg/dL (0.40-1.00); Digoxin (Lanoxin) 0.57 ug/mL (0.80-2.00); Glomerular Filtration Rate 87 (60-); Glucose, Blood 109 mg/dL (70-99); Sodium, Blood 144 mmol/L (136-145)
--- NOTE | 2024-04-08 05:14 | NUR ---
END OF SHIFT SUMMARY- Patient much improved in her anxiety during the night. Slept well, no complaints. Egg carton mattress applied on day shift helped drastically. Afib 100-110s on tele all night. VSS on 3LNC which patient wears at baseline for COPD. A&Ox4, refused PRN atarax saying she didnt need it. Swallowed her pills whole ok with water, states her swallowing has improved. Getting OOB independently to use the bathroom, denies dizziness and HR maintained in the 100-110 range. Pending echocardiogram today now that her HR has improved. Needs something for rate control. Dig lvl this AM 0.57. No other needs or concerns at this time.
[2024-04-08] MEDS ORDERED: Metoprolol Tartrate 25 MG Tab PO SCH (08:00)
[2024-04-08] MEDS ORDERED: Digoxin 0.125 MG Tab PO SCH (08:00)
[2024-04-08] MEDS ORDERED: Furosemide 40 MG Tab PO SCH (09:00)
--- NOTE | 2024-04-08 16:42 | NUR ---
Upon recieving a referral for spiritual care, I visited the patient she immediately tells about her devotion to the [employer], her amazing family support and the struggles to lower her blood pressure. Patient is very pleasant and mindful of everyone who comes into her room. I provided therapeutic listening, conversation centered around her [place] ankur and a calming presence. Patient repsonded well and showed signs of being encouraged in her ankur.
--- NOTE | 2024-04-08 18:11 | NUR ---
SHIFT SUMMARY NO ACUTE CHANGES THIS SHIFT. PT A&O X4, ABLE TO MAKE NEEDS KNOWN AND OBEYS COMMANDS, DOES BECOME EMOTIONAL WITH ANY CHANGES AND REPORTS FEELINGS OF FEAR. PTS HR BETTER CONTROLED THIS SHIFT, RHYTHM AFIB, RATE 90'S-110'S, ECHO WAS ABLE TO BE COMPLETED, DENIES CHEST P/P. PT REPORTS IMPROVED WORK OF BREATHING, SPO2 >95% ON 3L O2 VIA NC WHICH IS PTS BASELINE. PT IND IN ROOM WAS ABLE TO SHOWER THIS SHIFT. DR. DANG ROUNED THIS AM AND NEW ORDER WERE PLACED. SPEECH THERAPY EVALUATED PT AND IS NOT CONCERED ABOUT ASPIRATION. SPIRITUAL CARE DID SPEECH WITH PT THIS AFTERNOON. CALL LIGHT IN REACH, BED LOWEST POSTION, AWAITING TO GIVE REPORT TO ONCOMING RN.
[2024-04-09] VITALS (9 sets, daily range): BP systolic 81–147; BP diastolic 62–81
--- NOTE | 2024-04-09 05:04 | NUR ---
END OF SHIFT SUMMARY: Patient with no complaints overnight besides mild nasal drip thats irritating her throat. Slept throughout the night, getting OOB independently to void in BR. A&Ox4, pleasant. No anxiety overnight, HR remained stable Afib in the 90-100s. VSS on 3LNC which is her baseline continuous home O2 rate. Taking pills whole with water, no difficulty swallowing. Plan is to DC home today per report.
[2024-04-09 06:42] LABS: Calcium, Blood 8.5 mg/dL (8.5-10.1); Creatinine, Blood 0.65 mg/dL (0.40-1.00); Potassium, Blood 4.2 mmol/L (3.5-5.5)
--- NOTE | 2024-04-09 08:23 | NUR ---
AT BEDSIDE: ROUNDED ON PATIENT, ORDERED TO HOLD LASIX AND DISCHARGE TODAY AND PATIENT WILL START LASIX TOMORROW AT HOME. ORDERED TO GIVE DIGOXIN AND GIVE METOPROLOL IF BLOOD PRESSURE COMES UP TO 100 LATER IN THE DAY.
[2024-04-09] MEDS ORDERED: Empagliflozin 10 MG TAB PO SCH (09:00)
[2024-04-09] MEDS ORDERED: DIGOX125 MC1 PO (11:47)
[2024-04-09] MEDS ORDERED: JARDIANCE10 MG PO (11:47)
[2024-04-09] MEDS ORDERED: METO25 PO (11:48)
[2024-04-09] MEDS ORDERED: DULERA 100 MCG/13 GM INH (11:49)
[2024-04-09] MEDS ORDERED: FURO20 PO (11:49)
--- NOTE | 2024-04-09 12:37 | NUR ---
DISCHARGE NOTE: PT LEAVING VIA WHEELCHAIR WITH DAUGHTER HER RIDE. LEFT WITH ALL HER PERSONAL BELONGINGS AND KNOWLEDGE OF NEW MEDICATIONS TO BE STARTED AND WHAT PARAMETERS TO MONITOR. TELE AND IV REMOVED. PT UNDERSTOOD TO SCHEDULE A FOLLOWUP WITH PRIMARY PROVIDER WITHIN ONE WEEK.
== END 2024-04-09 12:58 | disposition home health service (06) | DRG 308 ==
LOC: ER 10:37 → PCU 10:38
PROVIDERS: Student in an Organized Health Care Education/Training Program; ADMIT Internal Medicine
DX: I48.91 Unspecified atrial fibrillation (principal); I50.21 Acute systolic (congestive) heart failure; J96.11 Chronic respiratory failure with hypoxia; I27.20 Pulmonary hypertension, unspecified; Z99.81 Dependence on supplemental oxygen; J43.9 Emphysema, unspecified; I73.9 Peripheral vascular disease, unspecified; Z79.01 Long term (current) use of anticoagulants; Z79.899 Other long term (current) drug therapy
CPT/HCPCS: 36415; 71046; 80048; 80053; 80162; 83690; 83735; 84439; 84443; 84481; 84484; 85025; 92610; 93005; 93010; 93306; 94640; 94664; 94760; 94762; 96361; 96365; 96366; 96375; 96376; 99285-25; A9270; G0378; J0282; J1160; J7030; J7060

== ENCOUNTER 2024-12-16 21:25 | Emergency (ER) | payer MEDICARE ==
[~2024-12-16] VITALS: Ht 165.1 cm; Wt 55.8 kg
[~2024-12-16 21:25] MED LIST changes: +DIGOX125 MC1 PO; +DULERA 100 MCG/13 GM INH; +FURO20 PO; +JARDIANCE10 MG PO; +METO25 PO
[2024-12-16 21:39] VITALS: BP 148/117
== END 2024-12-16 23:08 | disposition left against medical advice (07) ==
LOC: ER 21:25
DX: Z53.21 Procedure and treatment not carried out due to patient leaving prior to being seen by health care provider (principal)
CPT/HCPCS: 93005; 93010